=== PATIENT | female | born 1945 | race Caucasian/White ===

== ENCOUNTER 2018-04-29 23:20 | Emergency (ER) | payer MEDICARE, OTHER ==
[~2018-04-29] VITALS: Ht 165.1 cm; Wt 76.2 kg
[~2018-04-29 23:20] MED LIST: ADVIL200 MG PO; ARMOUR THYROID120 MG PO; CALCIUM600 MG PO; MAGOX 400400 MG PO; MULTI VITAMIN1 EACH PO; PRILOSEC40 MG PO; SUPER B COMPLE150 MG PO; VITAMIN D5000 UNIT PO; ZINC50 M2 PO
[2018-04-30] MEDS ORDERED: NORCO 5-325 TA1 EACH PO (02:06)
[2018-05-02] MEDS ORDERED: CVS LUTEIN 401 EACH PO (12:03)
[2018-05-02] MEDS ORDERED: OXYCODONE HCL5 MG PO (12:04)
== END 2018-04-30 02:22 | disposition home or self-care (01) ==
LOC: ED 23:20
DX: S42.202A Unspecified fracture of upper end of left humerus, initial encounter for closed fracture (principal); E03.9 Hypothyroidism, unspecified; Z79.899 Other long term (current) drug therapy; Z88.8 Allergy status to other drugs, medicaments and biological substances; W01.0XXA Fall on same level from slipping, tripping and stumbling without subsequent striking against object, initial encounter
CPT/HCPCS: 71046; 73030; 73060; 73200; 99284

== ENCOUNTER 2018-05-06 05:50 | Observation (INO) | payer MEDICARE, OTHER ==
[~2018-05-06] VITALS: Ht 165.1 cm; Wt 76.2 kg
[~2018-05-06 05:50] MED LIST changes: +CVS LUTEIN 401 EACH PO; +NORCO 5-325 TA1 EACH PO; +OXYCODONE HCL5 MG PO
[2018-05-06] MEDS ORDERED: HYDROCODON-ACE1 EA11 PO (06:07)
--- NOTE | 2018-05-06 09:40 | NUR ---
05/06/18 0940 Rubi Nash 0952 PT ARRIVED TO PACU WITH ORAL AIRWAY IN PLACE. CRYO CUFF IN PLACE. RESP EVEN AND UNLABORED, 6L VIA MASK. PT NONAROUSABLE.
--- NOTE | 2018-05-06 10:45 | NUR ---
PT ARRIVED FROM PACU VIA HOSPITAL BED. AWAKE, ALERT AND ORIENTED. DENIES PAIN OR NAUSEA. LEFT SHOULDER, UPPER ARM AND THUMB AND FOREFINGER NUMB, GOOD MOVMENT OF FINGERS. LEFT SHOULDER DRESSED WITH MEPILEX AND OPSITE, CDI. TEDS, SCD'S, HEEL PROTECTORS, AND CRYOCUFF IN PLACE. IV INFUSING WNL. PT SATTING 95% ON 2LNC. AND DAUGHTER AT BEDSIDE. CALL LIGHT WITHIN REACH.
--- NOTE | 2018-05-06 12:25 | NUR ---
PT SITTING UP AWAKE EATING LUNCH, GINI WELL. DENIES PAIN OR OTHER CONCERNS. ASKS MANY QUESTIONS ABOUT HOSPITAL STAY AND DC, QUESTIONS ANSWERED. DAUGHTER AT BEDSIDE. LEFT SHOULDER INCISION SITE REMAINS CDI, GOOD MOVEMENT OF HAND AND FINGERS, SHOULDER STILL NUMB. PT WEANED TO 1L NC, SATTING 93%. CALL LIGHT WITHIN REACH.
--- NOTE | 2018-05-06 13:50 | NUR ---
PT SITTING UP IN BED VISITING WITH FAMILY. LEFT DRESSING REMAINS CDI, NO PAIN REPORTED AT THIS TIME. PT REPORTS GRADUAL RETURN OF SENSATION OF THUMB AND FOREFINGER NOW, "TINGLY" INSTEAD OF NUMB. CRYO CUFF IN PLACE. CALL LIGHT WITHIN REACH.
--- NOTE | 2018-05-06 14:20 | NUR ---
PT SITTING UP IN BED WITH CRYOCUFF ON L SHOULDER. SHE IS ALERT AND ORIENTED AND IN NO PAIN AT THE MOMENT. SHE THANKED ME FOR COMING BY AND SAID SHE WAS FINE UNDER THE CIRCUMSTANCES. EXTENDED A BLESSING, WILL FOLLOW NEEDED
--- NOTE | 2018-05-06 15:25 | NUR ---
PT SITTING UP AT BEDSIDE WORKING WITH Trell RUBALCAVA WELL. CONT TO DENY PAIN AT THIS TIME. SCHEDULED MEDS GIVEN.
--- NOTE | 2018-05-06 17:20 | NUR ---
PT SITTING UP IN BED EATING DINNER, GINI REG DIET WELL. DENIES NEEDS OR CONCERNS AT THIS TIME. CALL LIGHT WITHIN REACH, AT BEDSIDE.
--- NOTE | 2018-05-06 18:58 | NUR ---
PT SBA TO RESTROOM. WEANED TO RA, SATTING 93%. PT DENIES PAIN OR OTHER CONCERNS. DRESSING REMAINS CDI. PT BACK TO BED, CRYO CUFF, TEDS, SCD'S AND HEEL PROTECTORS IN PLACE. CALL LIGHT WITHIN REACH.
--- NOTE | 2018-05-06 20:00 | NUR ---
PATIENT RESTING COMFORTABLY IN BED, BREATHING IS EVEN AND UNLABORED. O2 SATURATION IS 92% ON ROOM AIR. NO PAIN AT THIS TIME. PATIENT DENIES NEEDS. ASSESSMENT DONE, MEDICATIONS GIVEN. EDUCATED PATIENT ABOUT PAIN CONTROL AND CURRENT OPTIONS FOR PAIN MANAGEMENT, PATIENT STATES UNDERSTANDING. EDUCATED TO NOTIFY NURSING STAFF IF SHE BEGINS TO BECOME UNCOMFORTABLE. CALL LIGHT WITHIN REACH.
--- NOTE | 2018-05-06 22:00 | NUR ---
REFILLED CRYOCUFF ICE, PT WITH SCD'S, HEEL PROTECTORS IN PLACE. PULSEOX READING O2 READING 92 ON 1LO2. STATES HER HAND IS MORE AWAKE, FEELS THE ICE-COLDNESS OF THE CRYO ON SHOULDER. CALL LIGHT WITHIN REACH.
--- NOTE | 2018-05-06 22:46 | NUR ---
PATIENT RESTING COMFORTABLY IN BED, BREATHING IS EVEN AND UNLABORED. DENIES NEEDS AT THIS TIME, NO PAIN. REPORTS THAT SENSATION TO LEFT EXTREMITY IS RETURNING. CALL LIGHT WITHIN REACH, ALL ORDERS IN PLACE.
--- NOTE | 2018-05-07 00:44 | NUR ---
PATIENT RESTING COMFORTABLY IN BED, BREATHING IS EVEN AND UNLABORED, FLACC SCORE OF 0. CALL LIGHT WITHIN REACH.
--- NOTE | 2018-05-07 02:45 | NUR ---
PATIENT ASSISTED TO BATHROOM WITH SBA. TOLERATING AMBULATION WELL, GAIT IS STEADY. ONCE BACK IN BED, PATIENT REPORTS 5/10 PAIN IN LEFT SHOULDER AFTER PLACING CRYOCUFF BACK ON. SCHEDULED TORDOL GIVEN. DENIES FURTHER NEEDS. CALL LIGHT WITHIN REACH, ALL ORDERS IN PLACE.
--- NOTE | 2018-05-07 04:45 | NUR ---
PATIENT REPORTING 8/10 PAIN IN LEFT ARM, STATES THAT PAIN IN LEFT SHOULDER IS 2/10. SHE STATES "IT IS A DULL, ACHING, CONSTANT PAIN IN MY LEFT ELBOW AREA." PRN NORCO GIVEN PER EMAR. CMS INTACT. NO INCREASE IN SWELLING OF LEFT ARM. PATIENT DENIES FURTHER NEEDS AT THIS TIME. CALL LIGHT WITHIN REACH, ALL ORDERS IN PLACE.
--- NOTE | 2018-05-07 05:16 | NUR ---
PATIENT'S PAIN IS NOW AT 5/10 IN LEFT ARM, PATIENT STATES "IT SEEMS TO BE GETTING BETTER." DENIES FURTHER NEEDS AT THIS TIME. CALL LIGHT WITHIN REACH, ALL ORDERS IN PLACE.
--- NOTE | 2018-05-07 06:20 | NUR ---
PATIENT RESTING COMFORTABLY IN BED, BREATHING IS EVEN AND UNLABORED. FLACC SCORE OF 0. CALL LIGHT WITHIN REACH.
--- NOTE | 2018-05-07 07:05 | NUR ---
BEDSIDE HANDOFF REPORT RECIEVED FROM [employer] RN. PT RESTING IN BED. PT DENIES NEEDS AT THIS TIME.
[2018-05-07] MEDS ORDERED: MILK OF MA400 MG/5 M PO (07:21)
--- NOTE | 2018-05-07 08:51 | NUR ---
PT RESTIGN IN BED. P TON ROOM AIR, DENIES SOB. PT WITH PAIN 8-08/05, STATES IT IS GETTING BETTER AFTER RECEIVING PAIN MEDICATION THIS AM. PT DENIES NAUSEA, BOWEL TONES ACTIVE, REFUSED MIRALAX. PT CMS INTACT, FULL SENSATION AND STRENGTH IN LEFT UPPER EXTREMITY, PULSES PALPABLE. PT WITH SCDS, CHARITO HOSE AND HEEL PROTECTORS. CRYOCUFF TO LEFT SHOULDER. IV SALINE LOCKED, PATENT. PT DENIES OTHER NEEDS AT THIS TIME.
--- NOTE | 2018-05-07 11:15 | NUR ---
PT REQUESTING UPDATE ABOUT XRAY RESULTS. DISCUSSED XRAY RESULTS. PT SITTING IN CHAIR. PT RATING PAIN TOLERABLE AT THIS TIME, PLAN FOR PAIN MEDICATION WHEN AVAILABLE IN 1 HOUR. PT DENIES OTHER NEEDS AT THIS TIME.
[2018-05-07] MEDS ORDERED: NEURONTIN600 MG PO (11:24)
--- NOTE | 2018-05-07 11:26 | NUR ---
MED REC COMPLETE
--- NOTE | 2018-05-07 13:35 | NUR ---
THIS FACILITY SECURITY OFFICER ASSISTED PATIENT TO WALK HALLWAYS APPOROXIMATELY TWO LAPS, PATIENT UP TO BATHROOM, HAD DAVID COLORED URINE OUTPUT, RN NOTIFIED. PATIENT COMPLAINS OF PAIN IN ARM AND RATES IT AT A 5 OUT OF 10. PATIENT BACK IN BED, RESTING. CRYO ON, SCD'S ON, CALL LIGHT IN REACH. RN IN ROOM. CRYO REFILLED WITH FRESH ICE AND WATER. NO OTHER NEEDS AT THIS TIME.
--- NOTE | 2018-05-07 13:38 | NUR ---
PATIENT HAD DAVID COLORED URINE, RN NOTIFIED.
--- NOTE | 2018-05-07 13:53 | NUR ---
PT SITTING IN CHAIR-ALERT AND ORIENTED. SHE CONFUSED ME WITH DR MURPHY, AND BEGAN TO ASK ABOUT MIXING PAIN MEDS. I SHARED WITH HER AGAIN WHO I AM, AND PT SEEMED A LITTLE EMBARRASED. SHE EVEN STATED THAT SHE WAS SURPRISED THAT WOULD RETURN SO SOON AFTER VISITING AT 0700. I TOLD HER I WOULD PASS ALONG HER CONCERNS TO HER RN, MAKE MYSELF AVAILABLE TO HER. EXTENDED A BLESSING
--- NOTE | 2018-05-07 14:52 | NUR ---
PT RESTING IN BED. PT RATING PAIN 1/10 AT REST, 4/10 WITH MOVEMENT. PT GIVEN SCHEDULED TORADOL AND GABAPENTIN. PT DENIES OTHER NEEDS AT THIS TIME.
--- NOTE | 2018-05-07 16:15 | NUR ---
PT RATING PAIN 2/10 AT THIS TIME, GIVEN 2 TABS NORCO. DISCUSSED DISCHARGE, PT REQUESTING TO DISCHARGE THIS EVEING, HAS MET GOAL FOR PAIN CONTROLL. DR. MURPHY OFFICE CALLED, MESSAGE LEFT. PT DENIES OTHER NEEDS AT THIS TIME.
[2018-05-07] MEDS ORDERED: NORCO 10-325 T1 EACH PO (17:01)
--- NOTE | 2018-05-09 06:06 | OR ---
[facility] [address] [place], [place] [address] Signed DATE OF OPERATION: 05/06/2018 SURGEON: Esthela Vega MD PREOPERATIVE DIAGNOSIS: Three-part displaced proximal humerus fracture. POSTOPERATIVE DIAGNOSIS: Three-part displaced proximal humerus fracture. PROCEDURE PERFORMED: Left shoulder hemiarthroplasty. ENTERPRISE SALES PERSON: Moira Shields PA-C. Moira Shields PA-C was present for the entirety of the surgery and was necessary in patient positioning, retraction and would closure. ANESTHESIA: General. BLOOD LOSS: 200 mL. IMPLANTS: Simpson fracture stem size #11 with 44 x 19 head. BRIEF HISTORY: Kya is a 72-year-old female suffered a ground level fall last week. She had radiographs and ultimately a CT scan, which showed displaced three-part humerus fracture with valgus impaction of the head. Risks and benefits of operative treatment were discussed with her and she elected to proceed. DESCRIPTION OF PROCEDURE: Once consent was obtained, she was taken to the operating room. After adequate anesthesia, she was placed on the beach chair position. All downside pressure points were well-padded. The left arm was prepped and draped in the standard sterile fashion. Standard deltopectoral approach was taken through skin and subcutaneous tissue. The cephalic vein was taken laterally with the deltoid. The subdeltoid bursa was evacuated. The fracture was identified and the tuberosities were osteotomized and mobilized. A #2 FiberWire sutures were placed in each. The head was then mobilized and removed, taken Electronically Signed By: ESTHELA VEGA MD 05/06/18 1128 Electronically Signed By: ESTHELA VEGA MD 05/12/18 1928 PATIENT NAME: KYA BYRD OPERATIVE REPORT DATE OF : 43 REPORT #: [id number] PHYSICIAN: ESTHELA VEGA MD PCP: CULLEN LUIS DO REPORT IS CONFIDENTIAL AND NOT TO BE RELEASED WITHOUT AUTHORIZATION [facility] [address] [place], [place] [address] Signed to the back table and measured, the 44 seem to fit the best. Once this was accomplished, the proximal humeral shaft was identified and cleaned of soft tissue and debris. Trial stem was then positioned 30 degrees of retroversion and at approximately the right height by eyeballing. We then placed the head on trial of the shoulder. The height was reduced a little bit to reduce soft tissue tension. We were able to get 50% subluxation and excellent abduction. Once this was accomplished, tuberosities were debrided. Multiple drill holes were placed in the proximal humeral shaft and sutures were placed through these. The cement was mixed. When it reached proper consistency, it was finger packed into the humeral shaft and the stem was positioned to the same level as the trial. The two sutures were placed through the medial aspect of the stem and the lateral aspect. Once this was accomplished, the tuberosities were reduced back into position and sutured with multiple overlapping sutures until good stability was obtained. The rotator cuff interval was then closed and the shoulder was taken through range of motion and found to be good. The wound was copiously irrigated with antibiotic solution and injected with 40 mL of ropivacaine Toradol mixture. Deltopectoral interval was closed using #0 Stratafix, subcutaneous tissue with #0 Stratafix, and skin with ney. Wound was dressed with Mepilex Ag dressing and Opsite. She was awakened, taken to the recovery room in satisfactory condition. All sponge, needle, and instrument counts were correct. Esthela Vega MD BA/SYDL /[id number] Copies: ~ Electronically Signed By: ESTHELA VEGA MD 05/06/18 1128 Electronically Signed By: ESTHELA VEGA MD 05/12/18 1928 PATIENT NAME: KYA BYRD OPERATIVE REPORT DATE OF : 43 REPORT #: [id number] PHYSICIAN: ESTHELA VEGA MD PCP: CULLEN LUIS DO REPORT IS CONFIDENTIAL AND NOT TO BE RELEASED WITHOUT AUTHORIZATION
== END 2018-05-07 17:50 | disposition home or self-care (01) ==
LOC: DS 05:50 → MS 06:45 → DS 07:00 → MS 10:30 → DS 10:30 → EDSTATUS 11:15 → MS 11:15 → DS 11:15 → MS 05-07 17:50
PROVIDERS: ADMIT Specialist
PROC: 3E0T3BZ Introduction of Anesthetic Agent into Peripheral Nerves and Plexi, Percutaneous Approach (ICD-10-PCS; 2018-05-06)
PROC: 3E0T33Z Introduction of Anti-inflammatory into Peripheral Nerves and Plexi, Percutaneous Approach (ICD-10-PCS; 2018-05-06)
PROC: 0RRK0J6 Replacement of Left Shoulder Joint with Synthetic Substitute, Humeral Surface, Open Approach (ICD-10-PCS; principal; 2018-05-06 07:00)
DX: S42.292A Other displaced fracture of upper end of left humerus, initial encounter for closed fracture (principal); E89.0 Postprocedural hypothyroidism; I10 Essential (primary) hypertension; E78.00 Pure hypercholesterolemia, unspecified; G89.18 Other acute postprocedural pain; W18.30XA Fall on same level, unspecified, initial encounter; Z88.8 Allergy status to other drugs, medicaments and biological substances; Z79.899 Other long term (current) drug therapy; Z79.1 Long term (current) use of non-steroidal anti-inflammatories (NSAID); Z79.891 Long term (current) use of opiate analgesic
CPT/HCPCS: 36415; 64417; 73080; 76942; 80048; 85025; 97110; 97162; C1713; C1776; G0378; G8978; G8979; J0330; J0690; J0735; J1100; J1885; J2250; J2405; J2704; J2765; J3010; J7120

== ENCOUNTER 2022-12-15 06:43 | Emergency (ER) | payer MEDICARE, BC ==
[~2022-12-15] VITALS: Ht 165.1 cm; Wt 71.5 kg
[~2022-12-15 06:43] MED LIST changes: +HYDROCODON-ACE1 EA11 PO; +MILK OF MA400 MG/5 M PO; +NEURONTIN600 MG PO; +NORCO 10-325 T1 EACH PO
[2022-12-15] MEDS ORDERED: ATENOLOL50 MG (07:01)
[2022-12-15] MEDS ORDERED: ELIQUIS5 MG (07:01)
[2022-12-15] MEDS ORDERED: ARMOUR THYROID30 MG (07:02)
[2022-12-15] MEDS ORDERED: AMOXICILLIN500 MG (07:02)
--- NOTE | 2022-12-16 21:49 | EKG ---
[facility] [address] [facility] [place] [address] Signed Atrial fibrillation with rapid ventricular response Abnormal ECG Previously sinus rhythm Confirmed by Adore Bergeron MD () on 12/16/2022 9:49:04 PM Electronically Signed By: ADORE BERGERON MD 12/16/22 2149 PATIENT NAME: MITCHELL YBRD Electrocardiogram DATE OF : 43 PHYSICIAN: ADORE BERGERON MD REPORT #: [id number] REPORT IS CONFIDENTIAL AND NOT TO BE RELEASED WITHOUT AUTHORIZATION
== END 2022-12-15 09:32 | disposition home or self-care (01) ==
LOC: ED 06:43
DX: I48.91 Unspecified atrial fibrillation (principal); E03.9 Hypothyroidism, unspecified; Z88.8 Allergy status to other drugs, medicaments and biological substances; Z79.899 Other long term (current) drug therapy
CPT/HCPCS: 36415; 71045; 80053; 83735; 83880; 84484; 85025; 85610; 93005; 93010; 99285-25